=== PATIENT | female | born 2000 | race Caucasian/White ===

== ENCOUNTER 2024-05-12 10:55 | Outpatient (CLI) | payer OTHER, SELFPAY | END 2024-05-12 10:56 | disposition home or self-care (01) | LOC: NFLDREF 10:56 | PROVIDERS: Visit Provider Obstetrics & Gynecology | DX: O20.9 Hemorrhage in early pregnancy, unspecified (principal) | CPT/HCPCS: 84702; 86900; 86901 ==

== ENCOUNTER 2024-05-14 15:59 | Outpatient (CLI) | payer OTHER, SELFPAY | END 2024-05-14 16:00 | disposition home or self-care (01) | LOC: NFLDREF 05-18 16:26 | PROVIDERS: Visit Provider Obstetrics & Gynecology | DX: O20.0 Threatened abortion (principal) | CPT/HCPCS: 84702 ==